=== PATIENT | male | born 1930 | race Caucasian/White ===

== ENCOUNTER 2017-05-13 16:02 | Inpatient (IN) | payer BC, OTHER ==
[~2017-05-13] VITALS: Ht 182.9 cm; Wt 85.4 kg
[~2017-05-13 16:02] MED LIST: CLB200 PO; DUTA0.5C PO; LEVO100T35 PO; OXYB5TAB74 PO; POLYSOL4 OPB; TAMS0.4C59 PO
--- NOTE | 2017-05-13 16:47 | EMERGENCY ROOM VISIT NOTE ---
History Report prepared by Heladio: Fela Valverde Under the Supervision of: Dr. Herbert Mcpherson M.D. First contact with patient: 16:41 Chief Complaint: ALTERED MENTAL STATUS Stated Complaint: POSSIBLE SEPTIC History of Present Illness The patient is a 86 year old male who presents to the Emergency Room with complaints of constant altered mental status. Per the nursing staff, the patient is from [facility] and was sent ALS to the ED. He was reported to be hypoxic as well as hypotensive in the halfway however he was normotensive on route.. He has dementia. This HPI is limited due to the patient' s dementia. No known fall or trauma. Source of History: nursing staff History Limited By: dementia Position: other (global) Quality: other (altered mental status) Timing: constant Review of Systems See HPI for pertinent positives & negatives. Unable to obtain review of systems from the patient due to dementia Past Medical & Surgical Medical Problems: (1) ambulatory dysfunction (2) Anxiety disorder (3) Hyperplasia of prostate (4) Hypotension (5) Hypothyroidism (6) Hypoxia (7) Vascular dementia Family History Patient reports no known family medical history. Social History Smoking Status: Never Smoker Alcohol Use: none Marital Status: single, Housing Status: assisted living Occupation Status: retired Current/Historical Medications Scheduled Acetaminophen (Tylenol), 2 TAB PO BID Buspirone Hcl (Buspirone Hcl), 1.5 TAB PO BID Clotrimazole (Topical) (Lotrimin Af), 1 APPLN TOP BID Escitalopram (Lexapro), 20 MG PO QAM Eucerin (Eucerin), 1 APPLN TOP BID Finasteride (Proscar), 5 MG PO QAM Levothyroxine Sodium (Levothyroxine Sodium), 1 TAB PO QAM Meloxicam (Mobic), 7.5 MG PO QAM Polyethylene Glycol-Propylene (Systane), 1 DROPS OPB BID Senna (Senokot), 2 TAB PO BID Tamsulosin Hcl (Flomax), 0.4 MG PO HS Allergies Coded Allergies: No Known Allergies (Verified , 05/13/17) Physical Exam Vital Signs Date Time Temp Pulse Resp B/P (MAP) Pulse Ox O2 Delivery O2 Flow Rate FiO2 05/13/17 19:53 36.8 81 19 119/63 100 05/13/17 19:46 119/63 05/13/17 19:36 81 19 100 05/13/17 19:31 116/67 05/13/17 19:16 110/73 05/13/17 19:06 87 22 100 05/13/17 19:01 127/77 05/13/17 18:46 111/78 05/13/17 18:36 84 21 100 05/13/17 18:31 84 120/67 100 Room Air 05/13/17 18:16 111/72 05/13/17 18:07 83 21 100 Room Air 05/13/17 18:02 84 19 100 Room Air 05/13/17 18:01 125/55 05/13/17 17:46 108/74 05/13/17 17:32 89 20 100 Room Air 05/13/17 17:31 81/51 05/13/17 17:16 119/59 05/13/17 17:03 95/65 05/13/17 17:02 90 20 100 05/13/17 17:01 89/61 05/13/17 16:57 88/63 05/13/17 16:47 101/32 05/13/17 16:43 36.8 95 24 106/48 100 Room Air 05/13/17 16:39 98/57 05/13/17 16:14 102/67 05/13/17 16:13 97 05/13/17 16:13 179/161 Physical Exam General: Chronically ill appearing older male, hard of hearing but easily arousable. Follows some commands, baseline dementia. Only oriented to person. HEENT: Normal cephalic atraumatic. Pupils are equal round and reactive to light. Extraocular movements are intact. Oropharynx is pink with moist mucous membranes. No swelling of the mouth lips or tongue. Neck: Supple with a midline trachea. No meningeal signs or stiffness, no JVD or bruits. No Stridor. Chest: Clear to auscultation bilaterally. No wheezes or rhonchi. No increased work of breathing. Heart: regular rate and rhythm. Abdomen: Soft nontender, nondistended without rebound guarding or rigidity. Extremities: No cyanosis clubbing or edema. No calf tenderness or assymetry Spine/Back. Non tender to palpation. No CVA tenderness Skin: Good turgor without rashes. Neurologic exam: Cranial nerves two through 12 are intact. Motor and sensation are intact and symmetrical throughout. Medical Decision & Procedures ER Provider Diagnostic Interpretation: X-ray results as stated below per interpretation by me and the radiologist: CHEST ONE VIEW PORTABLE CLINICAL HISTORY: Atypical chest pain COMPARISON STUDY: 08/01/2013 FINDINGS: The heart is the upper limits of normal in size. There is no evidence of failure. Surgical clips project in the left paramediastinal region. There are by basilar opacities. Atelectasis is favored over pneumonia. IMPRESSION: Bibasilar opacities, likely atelectatic although an inflammatory/infectious process could appear similar Electronically signed by: Boaz Garland M.D. 05/13/2017 5:53 PM Dictated Date/Time: 05/13/2017 5:51 PM Laboratory Results 05/13/17 17:10 Red Blood Count 2.78, Mean Corpuscular Volume 96.4, Mean Corpuscular Hemoglobin 29.9, Mean Corpuscular Hemoglobin Concent 31.0, Mean Platelet Volume 10.4, Neutrophils (%) (Auto) 87.2, Lymphocytes (%) (Auto) 5.9, Monocytes (%) (Auto) 6.1, Eosinophils (%) (Auto) 0.0, Basophils (%) (Auto) 0.1, Neutrophils # (Auto) 13.76, Lymphocytes # (Auto) 0.93, Monocytes # (Auto) 0.97, Eosinophils # (Auto) 0.00, Basophils # (Auto) 0.01 05/13/17 17:10 05/13/17 19:01 Test 05/13/17 17:10 05/13/17 17:14 05/13/17 17:16 05/13/17 19:01 White Blood Count 15.78 K/uL (4.8-10.8) Red Blood Count 2.78 M/uL (4.7-6.1) Hemoglobin 8.3 g/dL (14.0-18.0) Hematocrit 26.8 % (42-52) Mean Corpuscular Volume 96.4 fL (80-100) Mean Corpuscular Hemoglobin 29.9 pg (25-34) Mean Corpuscular Hemoglobin Concent 31.0 g/dl (32-36) Platelet Count 215 K/uL (130-400) Mean Platelet Volume 10.4 fL (7.4-10.4) Neutrophils (%) (Auto) 87.2 % Lymphocytes (%) (Auto) 5.9 % Monocytes (%) (Auto) 6.1 % Eosinophils (%) (Auto) 0.0 % Basophils (%) (Auto) 0.1 % Neutrophils # (Auto) 13.76 K/uL (1.4-6.5) Lymphocytes # (Auto) 0.93 K/uL (1.2-3.4) Monocytes # (Auto) 0.97 K/uL (0.11-0.59) Eosinophils # (Auto) 0.00 K/uL (0-0.5) Basophils # (Auto) 0.01 K/uL (0-0.2) RDW Standard Deviation 54.3 fL (36.4-46.3) RDW Coefficient of Variation 15.4 % (11.5-14.5) Immature Granulocyte % (Auto) 0.7 % Immature Granulocyte # (Auto) 0.11 K/uL (0.00-0.02) Anisocytosis PRESENT Anion Gap 13.0 mmol/L (3-11) Est Creatinine Clear Calc Drug Dose 33.0 ml/min Estimated GFR () 40.8 Estimated GFR (Non- 35.2 BUN/Creatinine Ratio 14.7 (10-20) Calcium Level 6.2 mg/dl (8.5-10.1) Total Bilirubin 0.4 mg/dl (0.2-1) Direct Bilirubin mg/dl (0-0.2) Alanine Aminotransferase (ALT/SGPT) 16 U/L (12-78) Alkaline Phosphatase 41 U/L (45-117) Total Protein 5.0 gm/dl (6.4-8.2) Albumin 2.1 gm/dl (3.4-5.0) Lipase 69 U/L (73-393) Thyroid Stimulating Hormone (TSH) 3.820 uIu/ml (0.300-4.500) Chemistry Specimen Hemolysis Bedside Lactic Acid Venous 7.37 mmol/L (0.90-1.70) Bedside Troponin I 0.100 ng/ml (0-0.045) TZ-Qwt-[id number]-Type Natriuretic Peptide 745 pg/ml (0-1800) Aspartate Amino Transf (AST/SGOT) 47 U/L (15-37) Test 05/13/17 19:21 05/13/17 19:40 Lactic Acid Level 4.9 mmol/L (0.4-2.0) Laboratory studies as stated above per my review. Medications Administered Medications (Trade) Dose Ordered Sig/Heavenly Route Start Time Stop Time Status Last Admin Dose Admin Sodium Chloride 1,000 ml @ 999 mls/hr Q1H1M STAT IV 05/13/17 16:49 05/13/17 17:49 DC 05/13/17 17:24 999 MLS/HR Sodium Chloride 1,000 ml @ 150 mls/hr Q6H40M ONCE IV 05/13/17 16:49 05/13/17 23:28 05/13/17 17:25 150 MLS/HR Cefepime HCl 2000 mg/Dextrose 112.5 ml @ 225 mls/hr NOW ONCE IV 05/13/17 17:45 05/13/17 18:14 DC 05/13/17 18:11 225 MLS/HR Sodium Chloride 1,000 ml @ 999 mls/hr Q1H1M STAT IV 05/13/17 17:56 05/13/17 18:56 DC 05/13/17 18:04 999 MLS/HR ECG Indication: altered mental status Rate (beats per minute): 97 Findings: no acute ischemic change, other (poor baseline) Comparison ECG Date: compared to April 19, 2002 the rate has increased otherwise no acute change ED Course 164: Past medical records reviewed. The patient was evaluated in room B12, and a complete history and physical examination were performed. 1649: Sodium Chloride 1,000 ml @ 150 mls/hr IV, Sodium Chloride 1,000 ml @ 999 mls/hr IV. 1745: Cefepime HCl 2,000 mg/ Dextrose 112.5 ml @ 225 mls/hr IV. 1755: The patient is in no acute distress and his pressure is normal. 1756: Sodium Chloride 1,000 ml @ 999 mls/hr IV. 180: I spoke with Dr. Kedar Levi about the patient. He will come evaluate the patient for further treatment and management. 1808: Upon reevaluation, the patient is hemodynamically stable. The patient will be evaluated for further management. Medical Decision Differentials include, but are not limited to; sepsis, UTI, dehydration, electrolyte or metabolic abnormalities. Medication Reconciliation: I attest that I have personally reviewed the patient' s current medication list. Blood pressure Screening: Patient was found to have normal blood pressure on screening and does not require follow-up. This patient comes in as described above .he has severe dementia apparently and was hypotensive and hypoxemic however now appears to do much better. He is difficult to evaluate secondary dementia and is afebrile here. IV access established hydrated with IV normal saline. Chest x-ray shows some questionable infiltrates was atelectasis in the base. Blood cultures were obtained his lactic acid initially was significant elevated at 7 when it was rechecked he was further lower at 4. He was given cefepime IV. He has been normotensive here with exception of one isolated episode of hypotension. I discussed the case with our ED pharmacist and we have selected the cefepime this covers lungs and urine which are the most likely source for possible infection. BUN and creatinine also mildly elevated he does have some anemia as well. I do think he needs to be admitted for hydration and further treatment and evaluation. I have consulted the [facility] hospitalist to see the patient in the ER. Consults Time Called: 1756 Consulting Physician: Dr. Kedar Levi Returned Call: [address] Kedar Levi about the patient. He will come evaluate the patient for further treatment and management. Impression Primary Impression: Sepsis Additional Impression: Dehydration Critical Care Due to the sepsis diagnoses of this patient and need for IV antibiotics IV fluids and frequent reassessment, I have personally spent greater than 30 minutes of critical care time in the direct management of this patient. This includes bedside care, interpretation of diagnostic studies, and testing, discussion with consultants, patient, and family members, and other required patient management activities. This 30 minutes is in excess of all separately billable procedures. Scribe Attestation The scribe's documentation has been prepared under my direction and personally reviewed by me in its entirety. I confirm that the note above accurately reflects all work, treatment, procedures, and medical decision making performed by me. Departure Information Dispostion Being Evaluated By Hospitalist Problem Qualifiers
[2017-05-13] MEDS ORDERED: SODIUM CHLORIDE 0.9% 1000ML 1,000 ML IV ONE (16:49)
[2017-05-13] MEDS ORDERED: SODIUM CHLORIDE 0.9% 1000ML 1,000 ML IV STA ×2 (16:49→17:56)
[2017-05-13] MEDS ORDERED: ACET-1311 PO (17:27)
[2017-05-13] MEDS ORDERED: MELO7.5T5 PO (17:27)
[2017-05-13] MEDS ORDERED: BUSP5TAB59 PO (17:27)
[2017-05-13] MEDS ORDERED: SENN-61 PO (17:27)
[2017-05-13] MEDS ORDERED: CLOT1CRE4 TOP (17:27)
[2017-05-13] MEDS ORDERED: FINA5TAB4 PO (17:27)
[2017-05-13] MEDS ORDERED: SKINCRE34 TOP (17:27)
[2017-05-13] MEDS ORDERED: POLYSOL4 OPB (17:27)
[2017-05-13] MEDS ORDERED: LEVO100T7 PO (17:27)
[2017-05-13] MEDS ORDERED: ESCI10TA17 PO (17:27)
[2017-05-13] MEDS ORDERED: TAMS0.4C38 PO (17:27)
[2017-05-13 17:35] LABS: BASO % 0.1 %; BASO ABS # 0.01 K/uL (0-0.2); HEMATOCRIT 26.8 % (42-52); IG% 0.7 %; LYMPH % 5.9 %; LYMPH ABS # 0.93 K/uL (1.2-3.4); MEAN CELL VOLUME 96.4 fL (80-100); MEAN CORPUSCULAR HEMOGLOBIN 29.9 pg (25-34); MEAN PLATELET VOLUME 10.4 fL (7.4-10.4); MONO % 6.1 %; NEUT % 87.2 %; PLATELET COUNT 215 K/uL (130-400); RED BLOOD COUNT 2.78 M/uL (4.7-6.1); WHITE BLOOD COUNT 15.78 K/uL (4.8-10.8)
[2017-05-13 17:36] LABS: POINT OF CARE TROPONIN I 0.1 ng/ml (0-0.045)
[2017-05-13] MEDS ORDERED: CEFEPIME IV 2000 MG in DEXTROSE 5% 100ML IV ONE (17:45)
--- NOTE | 2017-05-13 17:54 | DIAGNOSTIC IMAGING REPORT ---
CHEST ONE VIEW PORTABLE CLINICAL HISTORY: Atypical chest pain COMPARISON STUDY: 08/01/2013 FINDINGS: The heart is the upper limits of normal in size. There is no evidence of failure. Surgical clips project in the left paramediastinal region. There are by basilar opacities. Atelectasis is favored over pneumonia. IMPRESSION: Bibasilar opacities, likely atelectatic although an inflammatory/infectious process could appear similar Electronically signed by: Boaz Garland M.D. 05/13/2017 5:53 PM Dictated Date/Time: 05/13/2017 5:51 PM
[2017-05-13 18:03] LABS: ANISOCYTOSIS PRESENT; COMPLETE YES
[2017-05-13 18:16] LABS: BLOOD UREA NITROGEN 25 mg/dl (7-18); BUN/CREATININE RATIO 14.7 (10-20); CALCIUM 6.2 mg/dl (8.5-10.1); CARBON DIOXIDE 14 mmol/L (21-32); CHLORIDE 120 mmol/L (98-107); GLUCOSE 107 mg/dl (70-99); SODIUM 147 mmol/L (136-145)
[2017-05-13 18:43] LABS: ALKALINE PHOSPHATASE 41 U/L (45-117); ALT/SGPT 16 U/L (12-78)
[2017-05-13 19:24] LABS: POTASSIUM 4.7 mmol/L (3.5-5.1)
--- NOTE | 2017-05-13 19:53 | History and Physical ---
History & Physical Date & Time of Service: May 13, 2017 at 19:15 Chief Complaint: Possible Septic Primary Care Physician: Anne Penn D.O. History of Present Illness Source: patient, hospital records, longterm 86 yo Male with PMH of Dementia, BPH, Hypothyroidism, HTN was sent from [facility] for hypotension/hypoxia. History limited due to patient dementia. Hx obtained from the ER chart/ER physician and Nursing staff/chart. As per Nursing staff pt was lethargy. His oxygen saturation was checked and was found to be in the 80's. he was placed on 2L NC and his saturation was 99. Nursing staff was unable to get his BP. As per staff, they were only getting 1 number (manually or BP machine and did not know if it was systolic and diastolic). As per longterm staff pt did not have any diarrhea, fever, chills, vomiting, diarrhea, cough or urinary symptoms. They called EMS and sent him to the Hospital for further eval. Received IVF and cefepime in the ER. Pt lying in bed B12 in the ER with no distress, BP 120/67 and saturated at 100%. denies any chest pain. Past Medical/Surgical History Medical Problems: (1) Anxiety disorder Status: Chronic (2) Hyperplasia of prostate Status: Chronic (3) Hypothyroidism Status: Chronic (4) Vascular dementia Status: Chronic Family History Patient reports no known family medical history. Social History Smoking Status: Unknown if Ever Smoked Marital Status: single, Housing status: lives alone Occupational Status: retired Immunizations History of Influenza Vaccine: N/A History of Tetanus Vaccine?: Yes History of Pneumococcal: Yes History of Hepatitis B Vaccine: No Multi-Drug Resistant Organisms History of MDRO: No Allergies Coded Allergies: No Known Allergies (Verified , 05/13/17) Home Medications Scheduled Acetaminophen (Tylenol), 2 TAB PO BID Buspirone Hcl (Buspirone Hcl), 1.5 TAB PO BID Clotrimazole (Topical) (Lotrimin Af), 1 APPLN TOP BID Escitalopram (Lexapro), 20 MG PO QAM Eucerin (Eucerin), 1 APPLN TOP BID Finasteride (Proscar), 5 MG PO QAM Levothyroxine Sodium (Levothyroxine Sodium), 1 TAB PO QAM Meloxicam (Mobic), 7.5 MG PO QAM Polyethylene Glycol-Propylene (Systane), 1 DROPS OPB BID Senna (Senokot), 2 TAB PO BID Tamsulosin Hcl (Flomax), 0.4 MG PO HS Review of Systems Limited due to dementia Constitutional: No fever, No chills ENT: No nasal symptoms, No sore throat Respiratory: No cough, No sputum, No wheezing Cardiovascular: No chest pain Abdomen: No nausea, No vomiting, No diarrhea Musculoskeletal: No swelling Genitourinary - Male: No hematuria, No dysuria Neurologic: + problem reported (dementia) Psychiatric: No substance abuse Endocrine: No excessive urination Hematologic / Lymphatic: No night sweats Integumentary: No rash Physical Exam Vital Signs Date Time Temp Pulse Resp B/P (MAP) Pulse Ox O2 Delivery O2 Flow Rate FiO2 05/13/17 18:31 84 120/67 100 Room Air 05/13/17 18:16 111/72 05/13/17 18:07 83 21 100 Room Air 05/13/17 18:02 84 19 100 Room Air 05/13/17 18:01 125/55 05/13/17 17:46 108/74 05/13/17 17:32 89 20 100 Room Air 05/13/17 17:31 81/51 05/13/17 17:16 119/59 05/13/17 17:03 95/65 05/13/17 17:02 90 20 100 05/13/17 17:01 89/61 05/13/17 16:57 88/63 05/13/17 16:47 101/32 05/13/17 16:43 36.8 95 24 106/48 100 Room Air 05/13/17 16:39 98/57 05/13/17 16:14 102/67 05/13/17 16:13 97 05/13/17 16:13 179/161 General Appearance: WD/WN, no apparent distress Head: normocephalic, atraumatic Eyes: EOMI ENT: + pertinent finding (decrease hearing function) Neck: supple, no JVD Respiratory/Chest: lungs clear, no respiratory distress, no accessory muscle use Cardiovascular: regular rate, rhythm, no edema Abdomen/GI: normal bowel sounds Back: no CVA tenderness Extremities/Musculoskelatal: no pedal edema Neurologic/Psych: alert, + pertinent finding (dementia, move all extremities) Skin: warm/dry, no rash Diagnostics Laboratory Results Results Past 24 Hours Test 05/13/17 17:10 05/13/17 17:14 05/13/17 17:16 05/13/17 17:19 Range/Units White Blood Count 15.78 4.8-10.8 K/uL Red Blood Count 2.78 4.7-6.1 M/uL Hemoglobin 8.3 14.0-18.0 g/dL Hematocrit 26.8 42-52 % Mean Corpuscular Volume 96.4 80-100 fL Mean Corpuscular Hemoglobin 29.9 25-34 pg Mean Corpuscular Hemoglobin Concent 31.0 32-36 g/dl Platelet Count 215 130-400 K/uL Mean Platelet Volume 10.4 7.4-10.4 fL Neutrophils (%) (Auto) 87.2 % Lymphocytes (%) (Auto) 5.9 % Monocytes (%) (Auto) 6.1 % Eosinophils (%) (Auto) 0.0 % Basophils (%) (Auto) 0.1 % Neutrophils # (Auto) 13.76 1.4-6.5 K/uL Lymphocytes # (Auto) 0.93 1.2-3.4 K/uL Monocytes # (Auto) 0.97 0.11-0.59 K/uL Eosinophils # (Auto) 0.00 0-0.5 K/uL Basophils # (Auto) 0.01 0-0.2 K/uL RDW Standard Deviation 54.3 36.4-46.3 fL RDW Coefficient of Variation 15.4 11.5-14.5 % Immature Granulocyte % (Auto) 0.7 % Immature Granulocyte # (Auto) 0.11 0.00-0.02 K/uL Anisocytosis PRESENT Sodium Level 147 136-145 mmol/L Potassium Level 3.5-5.1 mmol/L Chloride Level 120 98-107 mmol/L Carbon Dioxide Level 14 21-32 mmol/L Anion Gap 13.0 3-11 mmol/L Blood Urea Nitrogen 25 7-18 mg/dl Creatinine 1.70 0.60-1.40 mg/dl Est Creatinine Clear Calc Drug Dose 33.0 ml/min Estimated GFR () 40.8 Estimated GFR (Non- 35.2 BUN/Creatinine Ratio 14.7 10-20 Random Glucose 107 70-99 mg/dl Calcium Level 6.2 8.5-10.1 mg/dl Total Bilirubin 0.4 0.2-1 mg/dl Direct Bilirubin 0-0.2 mg/dl Aspartate Amino Transf (AST/SGOT) 15-37 U/L Alanine Aminotransferase (ALT/SGPT) 16 12-78 U/L Alkaline Phosphatase 41 45-117 U/L Total Protein 5.0 6.4-8.2 gm/dl Albumin 2.1 3.4-5.0 gm/dl Lipase 69 73-393 U/L Thyroid Stimulating Hormone (TSH) 3.820 0.300-4.500 uIu/ml Chemistry Specimen Hemolysis Bedside Lactic Acid Venous 7.37 0.90-1.70 mmol/L Bedside Troponin I 0.100 0-0.045 ng/ml [id number] Natriuretic Peptide 745 0-1800 pg/ml Test 05/13/17 19:01 Range/Units Microbiology Results 05/13/17 Blood Culture, Received Pending 05/13/17 Blood Culture, Received Pending Diagnostic Radiology CHEST ONE VIEW PORTABLE CLINICAL HISTORY: Atypical chest pain COMPARISON STUDY: 08/01/2013 FINDINGS: The heart is the upper limits of normal in size. There is no evidence of failure. Surgical clips project in the left paramediastinal region. There are by basilar opacities. Atelectasis is favored over pneumonia. IMPRESSION: Bibasilar opacities, likely atelectatic although an inflammatory/infectious process could appear similar Electronically signed by: Boaz Garland M.D. 05/13/2017 5:53 PM Dictated Date/Time: 05/13/2017 5:51 PM Impression Assessment and Plan Hypotension Was sent from [facility] for hypoxia and hypotension Need to r/o sepsis vs dehydration BP responds with IVF Elevated POC lactic Saturated well on RA Blood cx pending Will check urine cx and procalcitonin, lactic acid Received Cefepime in the ER, will continue abx for now Will continue gentle IVF Hypoxia CXR showed Bibasilar opacities Continue cefepime saturated at 100% on RA continue monitor Elevated troponin Possible related to elevated creatine EKG showed no ischemic changes Asymptomatic Will monitor CM Continue monitor in telemetry Acute Kidney injury Possible related to dehydration creatine on admission was 1.7 creatine baseline 1.1 continue IVF avoid nephrotoxic agents monitor BMP Dementia stable Hypothyroidism Check TSH Continue levothyroxine DVT px on heparin subq Code Status DNR as per longterm paper and advanced directive Level of Care Telemetry Resuscitation Status DO NOT RESUSCITATE VTE Prophylaxis VTE Risk Assessment Done? Y/N: Yes Risk Level: Moderate Given or contraindicated: Unfractionated heparin SQ
[2017-05-13] MEDS ORDERED: SODIUM CHLORIDE 0.45% 1000ML 1,000 ML IV SCH (20:27)
[2017-05-13 20:41] VITALS: BP 135/66; PULSE 85; TEMP 36.3; O2SAT 98; Ht 182.9 cm; Wt 85.4 kg
[2017-05-13 21:05] LABS: PROTHROMBIN TIME (PATIENT) 10.9 SECONDS (9.0-12.0)
[2017-05-13] MEDS: ARTIFICIAL TEARS OP SOLN OPB SCH ×2 (22:12)
[2017-05-13] MEDS: TAMSULOSIN HCL 0.4 MG CAP PO SCH (22:13)
[2017-05-13] MEDS: HEPARIN SOD 5000 UNIT/0.5 ML CARP SQ SCH (22:14)
[2017-05-14] VITALS (8 sets, daily range): BP systolic 92–144; BP diastolic 46–80; PULSE 68–89; TEMP 36.6–37; O2SAT 92–100
[2017-05-14 04:49] LABS: URINE APPEARANCE TURBID (CLEAR); URINE BILIRUBIN NEG (NEG); URINE COLOR DK YELLOW; URINE EPITHELIAL CELL AUTO >30 /lpf (0-5); URINE NITRITE POS (NEG); UROBILINOGEN NEG (NEG); ZZUR CULT IF INDIC CLEAN CATCH YES
[2017-05-14 04:57] LABS: MANUAL MICROSCOPIC REQUIRED? NO; REVIEW REQ? YES
[2017-05-14] MEDS: CEFEPIME IV 1,000 MG in DEXTROSE 5% 100ML 100 ML IV SCH ×2 (05:34→17:31)
[2017-05-14] MEDS: LEVOTHYROXINE 100 MCG TAB PO SCH (05:34)
[2017-05-14] MEDS: HEPARIN SOD 5000 UNIT/0.5 ML CARP SQ SCH ×3 (05:36→20:45)
[2017-05-14 05:52] LABS: HEMATOCRIT 26.3 % (42-52); MEAN CELL VOLUME 96.7 fL (80-100); MEAN CORPUSCULAR HEMOGLOBIN 31.6 pg (25-34); MEAN CORPUSCULAR HGB CONC 32.7 g/dl (32-36); MEAN PLATELET VOLUME 9.1 fL (7.4-10.4); PLATELET COUNT 237 K/uL (130-400); RED BLOOD COUNT 2.72 M/uL (4.7-6.1); WHITE BLOOD COUNT 15.65 K/uL (4.8-10.8)
[2017-05-14 06:30] LABS: BUN/CREATININE RATIO 17.2 (10-20); CALCIUM 8.1 mg/dl (8.5-10.1); CARBON DIOXIDE 22 mmol/L (21-32); CHLORIDE 113 mmol/L (98-107); GLUCOSE 108 mg/dl (70-99); MAGNESIUM 2.1 mg/dl (1.8-2.4); POTASSIUM 4.2 mmol/L (3.5-5.1); SODIUM 142 mmol/L (136-145)
[2017-05-14] MEDS: FINASTERIDE 5 MG TAB PO SCH (08:11)
[2017-05-14] MEDS: ARTIFICIAL TEARS OP SOLN OPB SCH ×4 (08:12→20:33)
[2017-05-14] MEDS: ESCITALOPRAM OXALATE 20 MG TAB PO SCH (08:12)
[2017-05-14] MEDS: SODIUM CHLORIDE 0.9% 1000ML 1,000 ML IV SCH ×2 (08:13→17:29)
--- NOTE | 2017-05-14 09:27 | Nephrology Consultation ---
Nephrology Consultation Date of Consultation: May 14, 2017. Attending Physician: Miguel Angel Reason for Consultation: barbara History of Present Illness Patient is a 86 year old male with barbara who presented on may 13 with low blood pressures and hypoxia. pt with underlying dementia at baseline. pt has been reported to be more lethargic recently and o2 sat was 80% and improved with nasal cannula. pt was not complaining of any symptoms and no documented fevers at assisted. started on iv fluids and iv antibiotics. found to have elevated troponin this morning and obtained ekg. pt though asymptomatic and denies any chest pain. eating breakfast. creatinine at baseline is 1.1 and presented at 1.7 and now up to 2.4. Past Medical/Surgical History Medical Problems: (1) Sepsis Status: Acute bph anxiety dementia hypothyroidism Family History Patient reports no known family medical history. no known family history of renal disease Social History Smoking Status: Unknown if Ever Smoked Alcohol Use: none Drug Use: none Marital Status: single, Housing Status: assisted living Occupation Status: retired Allergies Coded Allergies: No Known Allergies (Verified , 05/13/17) Medications Current Inpatient Medications Medications (Trade) Dose Ordered Sig/Heavenly Route Start Time Stop Time Status Last Admin Dose Admin Heparin Sodium (Porcine) (Heparin Sq 5000 Unit/0.5ml) 5,000 unit Q8 SQ 05/13/17 22:00 06/12/17 21:59 05/14/17 05:36 5,000 UNIT Cefepime HCl 1000 mg/Dextrose 111.3 ml @ 200 mls/hr Q12H IV 05/14/17 06:00 05/16/17 05:59 05/14/17 05:34 200 MLS/HR Buspirone HCl (Buspar Tab) 7.5 mg BID PO 05/13/17 21:00 06/12/17 20:59 05/14/17 08:12 7.5 MG Escitalopram Oxalate (Lexapro Tab) 20 mg QAM PO 05/14/17 09:00 06/13/17 08:59 05/14/17 08:12 20 MG Finasteride (Proscar Tab) 5 mg QAM PO 05/14/17 09:00 06/13/17 08:59 05/14/17 08:11 5 MG Levothyroxine Sodium (Synthroid Tab) 100 mcg DAILYBB PO 05/14/17 06:30 06/13/17 06:59 05/14/17 05:34 100 MCG Tamsulosin HCl (Flomax Cap) 0.4 mg HS PO 05/13/17 21:00 06/12/17 20:59 Artificial Tears (Artificial Tears) 1 drops BID OPB 05/13/17 21:00 06/12/17 20:59 05/14/17 08:12 1 DROPS Sodium Chloride 1,000 ml @ 100 mls/hr Q10H IV 05/14/17 07:30 06/13/17 07:29 05/14/17 08:13 100 MLS/HR Home Meds and Scripts Medications Dose Route/Sig Max Daily Dose Days Date Category Dose Instructions Systane (Polyethylene Glycol-Propylene) 1 Laura Laura 1 Drops OPB BID 05/13/17 Reported [id number] Levothyroxine Sodium 100 Mcg Tab 1 Tab PO QAM 05/13/17 Reported 0800 Senokot (Senna) 8.6 Mg Tab 2 Tab PO BID 05/13/17 Reported [id number] Proscar (Finasteride) 5 Mg Tab 5 Mg PO QAM 05/13/17 Reported 0800 Mobic (Meloxicam) 7.5 Mg Tab 7.5 Mg PO QAM 05/13/17 Reported 0800 Lexapro (Escitalopram Oxalate) 10 Mg Tab 20 Mg PO QAM 05/13/17 Reported 0800 Flomax (Tamsulosin Hcl) 0.4 Mg Cap 0.4 Mg PO HS 05/13/17 Reported 2000 Eucerin (Multi-Ingredient Ointment) Cre 1 Appln TOP BID 05/13/17 Reported [id number] Lotrimin Af (Clotrimazole (Topical)) 1 % Cre 1 Appln TOP BID 05/13/17 Reported [id number] Buspirone Hcl 5 Mg Tab 1.5 Tab PO BID 05/13/17 Reported [id number] Tylenol (Acetaminophen) 325 Mg Tab 2 Tab PO BID 05/13/17 Reported [phone] Review of Systems unable to obtain secondary to underlying dementia-pt though with no specific complaints Physical Exam Date Time Temp Pulse Resp B/P (MAP) Pulse Ox O2 Delivery O2 Flow Rate FiO2 05/14/17 07:43 36.8 74 19 111/46 (67) 92 Room Air 05/14/17 04:00 36.8 89 18 144/65 (91) 96 Room Air 05/14/17 03:58 Room Air 05/14/17 00:04 Room Air 05/14/17 00:00 36.9 82 18 92/58 (69) 100 Room Air 05/13/17 20:41 36.3 85 18 135/66 98 Room Air 05/13/17 19:53 36.8 81 19 119/63 100 05/13/17 19:46 119/63 05/13/17 19:36 81 19 100 05/13/17 19:31 116/67 05/13/17 19:16 110/73 05/13/17 19:06 87 22 100 05/13/17 19:01 127/77 05/13/17 18:46 111/78 05/13/17 18:36 84 21 100 05/13/17 18:31 84 120/67 100 Room Air 05/13/17 18:16 111/72 05/13/17 18:07 83 21 100 Room Air 05/13/17 18:02 84 19 100 Room Air 05/13/17 18:01 125/55 05/13/17 17:46 108/74 05/13/17 17:32 89 20 100 Room Air 05/13/17 17:31 81/51 05/13/17 17:16 119/59 05/13/17 17:03 95/65 05/13/17 17:02 90 20 100 05/13/17 17:01 89/61 05/13/17 16:57 88/63 05/13/17 16:47 101/32 05/13/17 16:43 36.8 95 24 106/48 100 Room Air 05/13/17 16:39 98/57 05/13/17 16:14 102/67 05/13/17 16:13 97 05/13/17 16:13 179/161 General Appearance: no apparent distress Eyes: PERRL ENT: normal ENT inspection Neck: supple Respiratory/Chest: + decreased breath sounds Cardiovascular: regular rate, rhythm, no edema Abdomen: normal bowel sounds, non tender, soft Extremities: non-tender, no pedal edema Neurologic/Psych: + pertinent finding (dementia at baseline) Skin: normal color, no jaundice, warm/dry, no rash Diagnostics Last 24 Hours Test 05/13/17 17:10 05/13/17 17:14 05/13/17 17:16 05/13/17 19:01 White Blood Count 15.78 K/uL Red Blood Count 2.78 M/uL Hemoglobin 8.3 g/dL Hematocrit 26.8 % Mean Corpuscular Volume 96.4 fL Mean Corpuscular Hemoglobin 29.9 pg Mean Corpuscular Hemoglobin Concent 31.0 g/dl Platelet Count 215 K/uL Mean Platelet Volume 10.4 fL Neutrophils (%) (Auto) 87.2 % Lymphocytes (%) (Auto) 5.9 % Monocytes (%) (Auto) 6.1 % Eosinophils (%) (Auto) 0.0 % Basophils (%) (Auto) 0.1 % Neutrophils # (Auto) 13.76 K/uL Lymphocytes # (Auto) 0.93 K/uL Monocytes # (Auto) 0.97 K/uL Eosinophils # (Auto) 0.00 K/uL Basophils # (Auto) 0.01 K/uL RDW Standard Deviation 54.3 fL RDW Coefficient of Variation 15.4 % Immature Granulocyte % (Auto) 0.7 % Immature Granulocyte # (Auto) 0.11 K/uL Anisocytosis PRESENT Sodium Level 147 mmol/L Potassium Level mmol/L 4.7 mmol/L Chloride Level 120 mmol/L Carbon Dioxide Level 14 mmol/L Anion Gap 13.0 mmol/L Blood Urea Nitrogen 25 mg/dl Creatinine 1.70 mg/dl Est Creatinine Clear Calc Drug Dose 33.0 ml/min Estimated GFR () 40.8 Estimated GFR (Non- 35.2 BUN/Creatinine Ratio 14.7 Random Glucose 107 mg/dl Calcium Level 6.2 mg/dl Total Bilirubin 0.4 mg/dl Direct Bilirubin mg/dl Aspartate Amino Transf (AST/SGOT) U/L 47 U/L Alanine Aminotransferase (ALT/SGPT) 16 U/L Alkaline Phosphatase 41 U/L Total Protein 5.0 gm/dl Albumin 2.1 gm/dl Lipase 69 U/L Thyroid Stimulating Hormone (TSH) 3.820 uIu/ml Chemistry Specimen Hemolysis Bedside Lactic Acid Venous 7.37 mmol/L Bedside Troponin I 0.100 ng/ml [id number] Natriuretic Peptide 745 pg/ml Test 05/13/17 19:21 05/13/17 19:40 05/13/17 20:44 05/13/17 23:00 Lactic Acid Level 4.9 mmol/L Procalcitonin 0.20 ng/ml Prothrombin Time 10.9 SECONDS Prothromb Time International Ratio 1.0 Activated Partial Thromboplast Time 25.9 SECONDS Partial Thromboplastin Ratio 1.0 Creatine Kinase MB Ratio Test 05/13/17 23:10 05/14/17 00:30 05/14/17 04:30 05/14/17 05:00 Creatine Kinase MB 21.8 ng/ml Lactic Acid Level 2.7 mmol/L Urine Color DK YELLOW Urine Appearance TURBID Urine pH 5.0 Urine Specific [place] 1.020 Urine Protein 2+ Urine Glucose (UA) NEG Urine Ketones TRACE Urine Occult Blood 3+ Urine Nitrite POS Urine Bilirubin NEG Urine Urobilinogen NEG Urine Leukocyte Esterase LARGE Urine WBC (Auto) >30 /hpf Urine RBC (Auto) >30 /hpf Urine Hyaline Casts (Auto) 5-10 /lpf Urine Epithelial Cells (Auto) >30 /lpf Urine Bacteria (Auto) 4+ Urine Crystals CALCIUM OXALATE Urine Yeast (Auto) Creatine Kinase MB Ratio Test 05/14/17 05:33 White Blood Count 15.65 K/uL Red Blood Count 2.72 M/uL Hemoglobin 8.6 g/dL Hematocrit 26.3 % Mean Corpuscular Volume 96.7 fL Mean Corpuscular Hemoglobin 31.6 pg Mean Corpuscular Hemoglobin Concent 32.7 g/dl RDW Standard Deviation 54.6 fL RDW Coefficient of Variation 15.4 % Platelet Count 237 K/uL Mean Platelet Volume 9.1 fL Sodium Level 142 mmol/L Potassium Level 4.2 mmol/L Chloride Level 113 mmol/L Carbon Dioxide Level 22 mmol/L Anion Gap 7.0 mmol/L Creatinine 2.40 mg/dl Est Creatinine Clear Calc Drug Dose 23.4 ml/min Estimated GFR () 26.9 Estimated GFR (Non- 23.2 BUN/Creatinine Ratio 17.2 Random Glucose 108 mg/dl Calcium Level 8.1 mg/dl Magnesium Level 2.1 mg/dl Creatine Kinase MB 22.7 ng/ml Troponin I 0.310 ng/ml Assessment & Plan barbara-atn in the setting of low blood pressures and presumed infection. on iv fluids and tolerating them well. to obtain a renal us to be thorough. no indication for dialysis at this time and would not recommend dialysis if the need arises. cultures pending. on broad sprectum antibiotics. appears to have uti but may be a contaminant. awaiting cultures. creatinine likely to worsen over the next couple of days before hopefully eventually starting to improve. will follow along.
[2017-05-14 09:53] LABS: BLOOD UREA NITROGEN 41 mg/dl (7-18)
--- NOTE | 2017-05-14 11:05 | DIAGNOSTIC IMAGING REPORT ---
EXAMINATION: RENAL ULTRASOUND CLINICAL HISTORY: Acute renal insufficiency COMPARISON STUDY: FINDINGS: The right kidney measures 10.9 cm.. The left kidney measures 10.6 cm.. There is no evidence of hydronephrosis. 2 right renal cysts are visualized measuring 32 mm and 20 mm respectively. There is a moderate amount of dependent debris within the bladder. Correlate with urinalysis. There is an 18 mm left-sided bladder diverticulum. IMPRESSION : 1. No evidence of hydronephrosis 2. Moderate bladder debris 3. Left-sided bladder diverticulum 4. Right renal cysts Electronically signed by: Boaz Garland M.D. 05/14/2017 11:03 AM Dictated Date/Time: 05/14/2017 11:01 AM
--- NOTE | 2017-05-14 12:46 | ECHOCARDIOGRAM REPORT ---
*NOTICE TO RECEIVING CONSTITUTION PARTY AGENCY This information is strictly Confidential and protected under [place] law. [place] law prohibits you from making any further disclosure of this information unless further disclosure is expressly permitted by the written consent of the person to whom it pertains or is authorized by law. A general authorization for the release of medical or other information is not sufficient for this purpose. Hospital accepts no responsibility if the information is made available to any other person, INCLUDING THE PATIENT. Interpretation Summary * Name: DARCY BORGES Study Date: 05/14/2017 11:03 AM * Patient Location: [facility]\S\N277\S\2 HR: 84 * : 1930 (M/d/yyyy) Gender: Male Height: 72 in * Age: 86 yrs Ethnicity: [place] Weight: 190 lb * Ordering Physician: Martina Michelle * Referring Physician: Richard Garcia at * Performed By: Arnaud Gilmore RCS * * Reason For Study: Elevated Troponin * BSA: 2.1 m2 * -- Conclusions -- * The LV appears small and underfilled. * Septal motion is consistent with conduction abnormality. * No regional wall motion abnormalities. * The right ventricle is normal in size and function. * The right ventricular systolic function is normal as assessed by tricuspid annular plane systolic excursion (TAPSE) (normal >1.5 cm). * Aortic valve sclerosis moderate, without significant aortic valvular stenosis. * There is mild concentric left ventricular hypertrophy. * Thickened mitral valve leaflets with calcification of the subchordal apparatus. * Dilated aortic root (4.3 cm) and ascending aorta (4.1 cm) * trace pericardial effusion. * Grade I diastolic dysfunction, (abnormal relaxation pattern). Procedure Details * Left Ventricle The LV appears small and underfilled. There is mild concentric left ventricular hypertrophy. Ejection Fraction = >70 %. Septal motion is consistent with conduction abnormality. No regional wall motion abnormalities. * Right Ventricle The right ventricle is normal in size and function. The right ventricular systolic function is normal as assessed by tricuspid annular plane systolic excursion (TAPSE) (normal >1.5 cm). * Atria The left atrium is mildly dilated. Right atrial size is normal. * Mitral Valve Thickened mitral valve leaflets with calcification of the subchordal apparatus. There is trace mitral regurgitation. * Tricuspid Valve The tricuspid valve anatomy is normal. There is trace tricuspid regurgitation. * Aortic Valve Aortic valve sclerosis moderate, without significant aortic valvular stenosis. No aortic regurgitation is present. * Pulmonic Valve The pulmonic valve is not well seen, but is grossly normal. Mild pulmonic valvular regurgitation. * Great Vessels Dilated aortic root (4.3 cm) and ascending aorta (4.1 cm) * Pericardium/Pleural trace pericardial effusion. * Left Ventricular Diastolic Function Grade I diastolic dysfunction, (abnormal relaxation pattern). Normal E to e' ratio. * * MMode 2D Measurements and Calculations * IVSd 1.3 cm * * LVIDd 4.4 cm * LVIDs 2.8 cm * LVPWd 1.4 cm * * IVS/LVPW 0.97 * FS 35.7 % * EDV(Teich) 87.2 ml * ESV(Teich) 30.1 ml * EF(Teich) 65.5 % * * EDV(cubed) 84.5 ml * ESV(cubed) 22.4 ml * EF(cubed) 73.5 % * * LV mass(C)d 223.5 grams * LV mass(C)dI 107.2 grams/m\S\2 * * SV(Teich) 57.1 ml * SI(Teich) 27.4 ml/m\S\2 * SV(cubed) 62.1 ml * SI(cubed) 29.8 ml/m\S\2 * * Ao root diam 4.3 cm * Ao root area 14.4 cm\S\2 * * asc Aorta Diam 4.1 cm * * LVOT diam 3.2 cm * LVOT area 8.2 cm\S\2 * * LVAd ap4 38.8 cm\S\2 * LVLd ap4 10.3 cm * EDV(MOD-sp4) 117.3 ml * EDV(sp4-el) 123.8 ml * LVAs ap4 14.7 cm\S\2 * LVLs ap4 7.1 cm * ESV(MOD-sp4) 29.4 ml * ESV(sp4-el) 25.8 ml * EF(MOD-sp4) 74.9 % * EF(sp4-el) 79.2 % * * LVAd ap2 35.7 cm\S\2 * LVLd ap2 9.3 cm * EDV(MOD-sp2) 110.5 ml * EDV(sp2-el) 116.3 ml * LVAs ap2 13.0 cm\S\2 * LVLs ap2 6.4 cm * ESV(MOD-sp2) 23.7 ml * ESV(sp2-el) 22.6 ml * EF(MOD-sp2) 78.6 % * EF(sp2-el) 80.5 % * * LVLd %diff -10.57 % * EDV(MOD-bp) 116.9 ml * LVLs %diff -11.76 % * ESV(MOD-bp) 27.0 ml * EF(MOD-bp) 76.9 % * * SV(MOD-sp4) 87.9 ml * SI(MOD-sp4) 42.2 ml/m\S\2 * * SV(MOD-sp2) 86.8 ml * SI(MOD-sp2) 41.6 ml/m\S\2 * * SV(MOD-bp) 90.0 ml * SI(MOD-bp) 43.2 ml/m\S\2 * * SV(sp4-el) 98.0 ml * SI(sp4-el) 47.0 ml/m\S\2 * * SV(sp2-el) 93.7 ml * SI(sp2-el) 44.9 ml/m\S\2 * * * * * * Doppler Measurements and Calculations * MV E max joseline 37.7 cm/sec * MV A max joseline 72.8 cm/sec * * MV E/A 0.52 * * MV dec time 0.16 sec * * *
--- NOTE | 2017-05-14 19:07 | Progress Note ---
Medicine Progress Note Date & Time of Visit: May 14, 2017 at 18:49. Subjective Pt was seen and examined Lying in bed with no distress when i entered his room pt asking me "who are you" after that He never answered to any of my question he is saturated well on RA Objective Last 8 Hrs Date Time Temp Pulse Resp B/P (MAP) Pulse Ox O2 Delivery O2 Flow Rate FiO2 05/14/17 16:00 Room Air 05/14/17 15:28 36.8 76 19 121/70 (87) 93 Room Air 05/14/17 12:00 93 Room Air Physical Exam: General- No acute distress Head- atraumatic Eyes- PERRL, EOMI ENT- oropharynx clear Neck- supple, no JVD Lungs- Poor air entry due to unable to follow commands Heart- regular rhythm Abdomen- normal bowel sounds, soft Extremities- no pretibial edema Neuro- awake and alert, PERRL, move all extremities Skin- warm & dry Laboratory Results: Last 24 Hours Test 05/13/17 19:01 05/13/17 19:21 05/13/17 19:40 05/13/17 20:44 Potassium Level 4.7 mmol/L Aspartate Amino Transf (AST/SGOT) 47 U/L Lactic Acid Level 4.9 mmol/L Procalcitonin 0.20 ng/ml Prothrombin Time 10.9 SECONDS Prothromb Time International Ratio 1.0 Activated Partial Thromboplast Time 25.9 SECONDS Partial Thromboplastin Ratio 1.0 Test 05/13/17 23:00 05/13/17 23:10 05/14/17 00:30 05/14/17 04:30 Creatine Kinase MB Ratio Creatine Kinase MB 21.8 ng/ml Lactic Acid Level 2.7 mmol/L Urine Color DK YELLOW Urine Appearance TURBID Urine pH 5.0 Urine Specific [place] 1.020 Urine Protein 2+ Urine Glucose (UA) NEG Urine Ketones TRACE Urine Occult Blood 3+ Urine Nitrite POS Urine Bilirubin NEG Urine Urobilinogen NEG Urine Leukocyte Esterase LARGE Urine WBC (Auto) >30 /hpf Urine RBC (Auto) >30 /hpf Urine Hyaline Casts (Auto) 5-10 /lpf Urine Epithelial Cells (Auto) >30 /lpf Urine Bacteria (Auto) 4+ Urine Crystals CALCIUM OXALATE Urine Yeast (Auto) Test 05/14/17 05:00 05/14/17 05:33 05/14/17 14:10 Creatine Kinase MB Ratio White Blood Count 15.65 K/uL Red Blood Count 2.72 M/uL Hemoglobin 8.6 g/dL Hematocrit 26.3 % Mean Corpuscular Volume 96.7 fL Mean Corpuscular Hemoglobin 31.6 pg Mean Corpuscular Hemoglobin Concent 32.7 g/dl RDW Standard Deviation 54.6 fL RDW Coefficient of Variation 15.4 % Platelet Count 237 K/uL Mean Platelet Volume 9.1 fL Sodium Level 142 mmol/L Potassium Level 4.2 mmol/L Chloride Level 113 mmol/L Carbon Dioxide Level 22 mmol/L Anion Gap 7.0 mmol/L Blood Urea Nitrogen 41 mg/dl Creatinine 2.40 mg/dl Est Creatinine Clear Calc Drug Dose 23.4 ml/min Estimated GFR () 26.9 Estimated GFR (Non- 23.2 BUN/Creatinine Ratio 17.2 Random Glucose 108 mg/dl Calcium Level 8.1 mg/dl Magnesium Level 2.1 mg/dl Creatine Kinase MB 22.7 ng/ml Troponin I 0.310 ng/ml 0.245 ng/ml Date/Time Source Procedure Growth Status 05/13/17 21:40 Nasal MRSA DNA Surveillance Screen - Final Specimen Negative for MRSA by DNA Probe Complete 05/14/17 04:30 Urine , Clean Catch Urine Culture Pending Received Assessment & Plan Sepsis Meet sepsis criteria on admission. Present with tachycardia, elevated WBC, elevated lactic acid on admission was hypotensive at [facility] BP responds with IVF Lactic acid trending down Saturated well on RA UA positive for UTI Blood cx pending and urine cx pending procalcitonin normal Continue Cefepime IV Continue IVF Vital stable Hypoxia CXR showed Bibasilar opacities Continue cefepime saturated well on RA continue monitor Elevated troponin Possible related to elevated creatine EKG showed no ischemic changes trop trending down Asymptomatic Continue monitor in telemetry Echo showed * The LV appears small and underfilled. * Septal motion is consistent with conduction abnormality. * No regional wall motion abnormalities. * The right ventricle is normal in size and function. * EF=> 70 Acute Kidney injury Possible related to dehydration creatine on admission was 1.7 creatine baseline 1.1 creatine increase to 2.4 today continue IVF avoid nephrotoxic agents Nephrology consulted monitor BMP Renal U/S showed: No evidence of hydronephrosis. Moderate bladder debris. Left-sided bladder diverticulum Dementia stable Hypothyroidism TSH WNL Continue levothyroxine DVT px on heparin subq Code Status DNR Consultants: Nephrology Current Inpatient Medications: Current Inpatient Medications Medications (Trade) Dose Ordered Sig/Heavenly Route Start Time Stop Time Status Last Admin Dose Admin Heparin Sodium (Porcine) (Heparin Sq 5000 Unit/0.5ml) 5,000 unit Q8 SQ 05/13/17 22:00 06/12/17 21:59 05/14/17 14:08 5,000 UNIT Cefepime HCl 1000 mg/Dextrose 111.3 ml @ 200 mls/hr Q12H IV 05/14/17 06:00 05/16/17 05:59 05/14/17 17:31 200 MLS/HR Buspirone HCl (Buspar Tab) 7.5 mg BID PO 05/13/17 21:00 06/12/17 20:59 05/14/17 08:12 7.5 MG Escitalopram Oxalate (Lexapro Tab) 20 mg QAM PO 05/14/17 09:00 06/13/17 08:59 05/14/17 08:12 20 MG Finasteride (Proscar Tab) 5 mg QAM PO 05/14/17 09:00 06/13/17 08:59 05/14/17 08:11 5 MG Levothyroxine Sodium (Synthroid Tab) 100 mcg DAILYBB PO 05/14/17 06:30 06/13/17 06:59 05/14/17 05:34 100 MCG Tamsulosin HCl (Flomax Cap) 0.4 mg HS PO 05/13/17 21:00 06/12/17 20:59 Artificial Tears (Artificial Tears) 1 drops BID OPB 05/13/17 21:00 06/12/17 20:59 05/14/17 08:12 1 DROPS Sodium Chloride 1,000 ml @ 100 mls/hr Q10H IV 05/14/17 07:30 06/13/17 07:29 05/14/17 17:29 100 MLS/HR
[2017-05-14] MEDS: TAMSULOSIN HCL 0.4 MG CAP PO SCH (20:33)
[2017-05-15] VITALS (14 sets, daily range): BP systolic 106–149; BP diastolic 57–81; PULSE 69–84; TEMP 36.2–37.1; O2SAT 93–100
[2017-05-15] MEDS: SODIUM CHLORIDE 0.9% 1000ML 1,000 ML IV SCH ×2 (03:25→18:37)
[2017-05-15] MEDS: HEPARIN SOD 5000 UNIT/0.5 ML CARP SQ SCH (05:42)
[2017-05-15] MEDS: CEFEPIME IV 1,000 MG in DEXTROSE 5% 100ML 100 ML IV SCH ×2 (05:42→18:37)
[2017-05-15] MEDS: LEVOTHYROXINE 100 MCG TAB PO SCH (05:42)
[2017-05-15 06:04] LABS: HEMATOCRIT 22.3 % (42-52); MEAN CELL VOLUME 96.5 fL (80-100); MEAN CORPUSCULAR HEMOGLOBIN 31.6 pg (25-34); MEAN CORPUSCULAR HGB CONC 32.7 g/dl (32-36); MEAN PLATELET VOLUME 8.4 fL (7.4-10.4); PLATELET COUNT 206 K/uL (130-400); RED BLOOD COUNT 2.31 M/uL (4.7-6.1); WHITE BLOOD COUNT 11.99 K/uL (4.8-10.8)
[2017-05-15 06:39] LABS: BUN/CREATININE RATIO 22.3 (10-20); CREATININE 1.7 mg/dl (0.60-1.40); POTASSIUM 4.1 mmol/L (3.5-5.1)
[2017-05-15] MEDS: ARTIFICIAL TEARS OP SOLN OPB SCH ×4 (08:47→20:44)
[2017-05-15] MEDS: FINASTERIDE 5 MG TAB PO SCH (08:47)
[2017-05-15] MEDS: ESCITALOPRAM OXALATE 20 MG TAB PO SCH (08:47)
--- NOTE | 2017-05-15 12:33 | Nephrology Progress Note ---
Nephrology Progress Note Date of Service: May 15, 2017. Subjective 86 yo male with barbara/atn in setting of hypoxia, and found to have uti and on antibiotics. pts hg levels are low and getting blood transfusion today. on iv fluids and tolerating them well. Objective Date Time Temp Pulse Resp B/P (MAP) Pulse Ox O2 Delivery O2 Flow Rate FiO2 05/15/17 12:15 36.8 76 18 110/81 94 05/15/17 11:44 36.9 76 18 130/57 94 05/15/17 11:15 36.9 76 22 106/64 94 05/15/17 11:00 36.8 75 24 111/57 94 05/15/17 10:47 36.7 82 22 127/66 05/15/17 07:02 36.6 69 18 113/57 (75) 93 Room Air 05/15/17 04:10 36.8 74 18 110/66 (81) 93 Room Air 05/15/17 04:00 Room Air 05/15/17 00:00 Room Air 05/14/17 23:18 36.6 70 20 123/80 (94) 100 Room Air 05/14/17 20:00 Room Air 05/14/17 19:53 37.0 68 20 106/64 (78) 94 Room Air 05/14/17 16:00 Room Air 05/14/17 15:28 36.8 76 19 121/70 (87) 93 Room Air Physical Exam: General-dementia Eyes-no scleral icterus ENT-mmm Neck-supple Lungs-decreased at bases, poor inspiratory effort Heart-rrr Abdomen-bs+ s/nt/nd Extremities-no c/c/e Neuro-dementia Current Inpatient Medications Medications (Trade) Dose Ordered Sig/Heavenly Route Start Time Stop Time Status Last Admin Dose Admin Heparin Sodium (Porcine) (Heparin Sq 5000 Unit/0.5ml) 5,000 unit Q8 SQ 05/13/17 22:00 06/12/17 21:59 05/15/17 05:42 5,000 UNIT Cefepime HCl 1000 mg/Dextrose 111.3 ml @ 200 mls/hr Q12H IV 05/14/17 06:00 05/16/17 05:59 05/15/17 05:42 200 MLS/HR Buspirone HCl (Buspar Tab) 7.5 mg BID PO 05/13/17 21:00 06/12/17 20:59 05/15/17 08:47 7.5 MG Escitalopram Oxalate (Lexapro Tab) 20 mg QAM PO 05/14/17 09:00 06/13/17 08:59 05/15/17 08:47 20 MG Finasteride (Proscar Tab) 5 mg QAM PO 05/14/17 09:00 06/13/17 08:59 05/15/17 08:47 5 MG Levothyroxine Sodium (Synthroid Tab) 100 mcg DAILYBB PO 05/14/17 06:30 06/13/17 06:59 05/15/17 05:42 100 MCG Tamsulosin HCl (Flomax Cap) 0.4 mg HS PO 05/13/17 21:00 06/12/17 20:59 05/14/17 20:33 0.4 MG Artificial Tears (Artificial Tears) 1 drops BID OPB 05/13/17 21:00 06/12/17 20:59 05/15/17 08:47 1 DROPS Sodium Chloride 1,000 ml @ 75 mls/hr [id number] IV 05/14/17 07:30 06/13/17 07:29 05/15/17 03:25 100 MLS/HR Last 24 Hours Test 05/14/17 14:10 05/14/17 22:34 05/15/17 05:54 Troponin I 0.245 ng/ml 0.214 ng/ml White Blood Count 11.99 K/uL Red Blood Count 2.31 M/uL Hemoglobin 7.3 g/dL Hematocrit 22.3 % Mean Corpuscular Volume 96.5 fL Mean Corpuscular Hemoglobin 31.6 pg Mean Corpuscular Hemoglobin Concent 32.7 g/dl RDW Standard Deviation 54.0 fL RDW Coefficient of Variation 15.4 % Platelet Count 206 K/uL Mean Platelet Volume 8.4 fL Sodium Level 142 mmol/L Potassium Level 4.1 mmol/L Chloride Level 114 mmol/L Carbon Dioxide Level 19 mmol/L Anion Gap 9.0 mmol/L Blood Urea Nitrogen 38 mg/dl Creatinine 1.70 mg/dl Est Creatinine Clear Calc Drug Dose 33.0 ml/min Estimated GFR () 40.8 Estimated GFR (Non- 35.2 BUN/Creatinine Ratio 22.3 Random Glucose 86 mg/dl Lactic Acid Level 0.8 mmol/L Calcium Level 8.0 mg/dl Procalcitonin 0.13 ng/ml Assessment & Plan barbara-atn in the setting of low blood pressures and uti. improving on antibiotics and iv fluids. currrently getting a blood transfusion. creatinine peaked at 2.4 and is 1.7 today. baseline in the low 1s. renal us with no hydro. continue current plan of care. pt clinically improving. follow volume status closely.
--- NOTE | 2017-05-15 13:19 | Progress Note ---
Medicine Progress Note Date & Time of Visit: May 15, 2017 at 12:56. Subjective Pt was seen and examined Lying in bed with no distress Pt is awake, looking around VS stable and saturated well on RA Called his HARISHA George for blood consent Objective Last 8 Hrs Date Time Temp Pulse Resp B/P (MAP) Pulse Ox O2 Delivery O2 Flow Rate FiO2 05/15/17 12:15 36.8 76 18 110/81 94 05/15/17 11:44 36.9 76 18 130/57 94 05/15/17 11:15 36.9 76 22 106/64 94 05/15/17 11:00 36.8 75 24 111/57 94 05/15/17 10:47 36.7 82 22 127/66 05/15/17 07:02 36.6 69 18 113/57 (75) 93 Room Air Physical Exam: General- No acute distress Head- atraumatic Eyes- PERRL, EOMI ENT- oropharynx clear Neck- supple, no JVD Lungs- Poor air entry due to unable to follow commands Heart- regular rhythm Abdomen- normal bowel sounds, soft Extremities- no pretibial edema Neuro- awake and alert, PERRL, move all extremities Skin- warm & dry Laboratory Results: Last 24 Hours Test 05/14/17 14:10 05/14/17 22:34 05/15/17 05:54 Troponin I 0.245 ng/ml 0.214 ng/ml White Blood Count 11.99 K/uL Red Blood Count 2.31 M/uL Hemoglobin 7.3 g/dL Hematocrit 22.3 % Mean Corpuscular Volume 96.5 fL Mean Corpuscular Hemoglobin 31.6 pg Mean Corpuscular Hemoglobin Concent 32.7 g/dl RDW Standard Deviation 54.0 fL RDW Coefficient of Variation 15.4 % Platelet Count 206 K/uL Mean Platelet Volume 8.4 fL Sodium Level 142 mmol/L Potassium Level 4.1 mmol/L Chloride Level 114 mmol/L Carbon Dioxide Level 19 mmol/L Anion Gap 9.0 mmol/L Blood Urea Nitrogen 38 mg/dl Creatinine 1.70 mg/dl Est Creatinine Clear Calc Drug Dose 33.0 ml/min Estimated GFR () 40.8 Estimated GFR (Non- 35.2 BUN/Creatinine Ratio 22.3 Random Glucose 86 mg/dl Lactic Acid Level 0.8 mmol/L Calcium Level 8.0 mg/dl Procalcitonin 0.13 ng/ml Assessment & Plan Sepsis Meet sepsis criteria on admission. Present with tachycardia, elevated WBC, elevated lactic acid on admission was hypotensive at [facility] BP responds with IVF Lactic acid trending down Saturated well on RA UA positive for UTI Blood cx pending and urine cx pending procalcitonin normal Continue Cefepime IV Decresased IVF to 70ml/hr Vital stable Hypoxia CXR showed Bibasilar opacities Continue cefepime saturated well on RA continue monitor Anemia Might be dilutional No signs of bleeding Hba1c 7.3 will transfuse 1 unit PRBC Consent obtained from HIPOLITO Vazquez with nurse present as witness monitor cbc hold heparin subq for now Elevated troponin Possible related to elevated creatine EKG showed no ischemic changes trop trending down Asymptomatic Continue monitor in telemetry Echo showed * The LV appears small and underfilled. * Septal motion is consistent with conduction abnormality. * No regional wall motion abnormalities. * The right ventricle is normal in size and function. * EF=> 70 Acute Kidney injury Possible related to dehydration creatine on admission was 1.7 creatine baseline 1.1 creatine decreased to 2.4 --> 1.7 continue IVF avoid nephrotoxic agents Will monitor closely for fluid overload Nephrology consulted monitor BMP Renal U/S showed: No evidence of hydronephrosis. Moderate bladder debris. Left-sided bladder diverticulum Dementia stable Hypothyroidism TSH WNL Continue levothyroxine DVT px hold heparin subq due to anemia Put on SCDs Code Status DNR Consultants: Nephrology Current Inpatient Medications: Current Inpatient Medications Medications (Trade) Dose Ordered Sig/Heavenly Route Start Time Stop Time Status Last Admin Dose Admin Heparin Sodium (Porcine) (Heparin Sq 5000 Unit/0.5ml) 5,000 unit Q8 SQ 05/13/17 22:00 06/12/17 21:59 05/15/17 05:42 5,000 UNIT Cefepime HCl 1000 mg/Dextrose 111.3 ml @ 200 mls/hr Q12H IV 05/14/17 06:00 05/16/17 05:59 05/15/17 05:42 200 MLS/HR Buspirone HCl (Buspar Tab) 7.5 mg BID PO 05/13/17 21:00 06/12/17 20:59 05/15/17 08:47 7.5 MG Escitalopram Oxalate (Lexapro Tab) 20 mg QAM PO 05/14/17 09:00 06/13/17 08:59 05/15/17 08:47 20 MG Finasteride (Proscar Tab) 5 mg QAM PO 05/14/17 09:00 06/13/17 08:59 05/15/17 08:47 5 MG Levothyroxine Sodium (Synthroid Tab) 100 mcg DAILYBB PO 05/14/17 06:30 06/13/17 06:59 05/15/17 05:42 100 MCG Tamsulosin HCl (Flomax Cap) 0.4 mg HS PO 05/13/17 21:00 06/12/17 20:59 05/14/17 20:33 0.4 MG Artificial Tears (Artificial Tears) 1 drops BID OPB 05/13/17 21:00 06/12/17 20:59 05/15/17 08:47 1 DROPS Sodium Chloride 1,000 ml @ 75 mls/hr [id number] IV 05/14/17 07:30 06/13/17 07:29 05/15/17 03:25 100 MLS/HR
[2017-05-15 20:15] LABS: HEMATOCRIT 24.3 % (42-52)
[2017-05-15] MEDS: TAMSULOSIN HCL 0.4 MG CAP PO SCH (20:45)
[2017-05-16] MEDS: SODIUM CHLORIDE 0.9% 1000ML 1,000 ML IV SCH ×2 (03:38→15:58)
[2017-05-16 03:59] VITALS: BP 138/75; PULSE 76; TEMP 36.6; O2SAT 94
[2017-05-16] MEDS: LEVOTHYROXINE 100 MCG TAB PO SCH (05:47)
[2017-05-16 07:21] VITALS: BP 122/66; PULSE 73; TEMP 36.5; O2SAT 97
[2017-05-16] MEDS: ARTIFICIAL TEARS OP SOLN OPB SCH ×2 (08:49)
[2017-05-16] MEDS: ESCITALOPRAM OXALATE 20 MG TAB PO SCH (08:49)
[2017-05-16] MEDS: FINASTERIDE 5 MG TAB PO SCH (08:49)
--- NOTE | 2017-05-16 10:27 | Nephrology Progress Note ---
Nephrology Progress Note Date of Service: May 16, 2017. Subjective 86 yo male with barbara/atn in setting of hypoxia, and found to have uti and on antibiotics. pt with underlying dementia with no specific complaints today. pt laying flat and not requiring any oxygen. Objective Date Time Temp Pulse Resp B/P (MAP) Pulse Ox O2 Delivery O2 Flow Rate FiO2 05/16/17 07:21 36.5 73 20 122/66 (84) 97 Room Air 05/16/17 03:59 36.6 76 20 138/75 (96) 94 Room Air 05/15/17 23:48 Room Air 05/15/17 19:56 Room Air 05/15/17 19:22 37.0 69 20 134/72 (92) 100 Room Air 05/15/17 16:00 95 Room Air 05/15/17 15:41 36.2 76 20 115/62 (79) 94 Room Air 05/15/17 13:45 36.9 84 22 109/57 94 05/15/17 13:11 37.1 76 18 149/74 94 05/15/17 12:15 36.8 76 18 110/81 94 05/15/17 12:00 94 Room Air 05/15/17 11:44 36.9 76 18 130/57 94 05/15/17 11:15 36.9 76 22 106/64 94 05/15/17 11:00 36.8 75 24 111/57 94 05/15/17 10:47 36.7 82 22 127/66 Physical Exam: General-dementia Eyes-no scleral icterus ENT-mmm Neck-supple Lungs-decreased at bases Heart-regular Abdomen-bs+ s/nt/nd Extremities-no c/c/e Neuro-dementia Current Inpatient Medications Medications (Trade) Dose Ordered Sig/Heavenly Route Start Time Stop Time Status Last Admin Dose Admin Heparin Sodium (Porcine) (Heparin Sq 5000 Unit/0.5ml) 5,000 unit Q8 SQ 05/13/17 22:00 06/12/17 21:59 Future Hold 05/15/17 05:42 5,000 UNIT Buspirone HCl (Buspar Tab) 7.5 mg BID PO 05/13/17 21:00 06/12/17 20:59 05/16/17 08:49 7.5 MG Escitalopram Oxalate (Lexapro Tab) 20 mg QAM PO 05/14/17 09:00 06/13/17 08:59 05/16/17 08:49 20 MG Finasteride (Proscar Tab) 5 mg QAM PO 05/14/17 09:00 06/13/17 08:59 05/16/17 08:49 5 MG Levothyroxine Sodium (Synthroid Tab) 100 mcg DAILYBB PO 05/14/17 06:30 06/13/17 06:59 05/16/17 05:47 100 MCG Tamsulosin HCl (Flomax Cap) 0.4 mg HS PO 05/13/17 21:00 06/12/17 20:59 05/15/17 20:45 0.4 MG Artificial Tears (Artificial Tears) 1 drops BID OPB 05/13/17 21:00 06/12/17 20:59 05/16/17 08:49 1 DROPS Sodium Chloride 1,000 ml @ 75 mls/hr [id number] IV 05/14/17 07:30 06/13/17 07:29 05/16/17 03:38 75 MLS/HR Last 24 Hours Test 05/15/17 20:04 05/16/17 04:44 05/16/17 10:08 Hemoglobin 8.0 g/dL Hematocrit 24.3 % Assessment & Plan barbara-atn in the setting of low blood pressures and uti. improving on antibiotics and iv fluids. had blood transfusion yesterday. on iv fluids and would continue them with plans of stopping them tomorrow depending on labs. creatinine peaked at 2.4 and improving. today's labs are pending.
[2017-05-16 10:36] LABS: HEMATOCRIT 24.5 % (42-52); MEAN CELL VOLUME 96.5 fL (80-100); MEAN CORPUSCULAR HEMOGLOBIN 32.7 pg (25-34); MEAN CORPUSCULAR HGB CONC 33.9 g/dl (32-36); PLATELET COUNT 229 K/uL (130-400); RED BLOOD COUNT 2.54 M/uL (4.7-6.1); WHITE BLOOD COUNT 10.38 K/uL (4.8-10.8)
[2017-05-16 10:49] LABS: BUN/CREATININE RATIO 22.7 (10-20); CALCIUM 8.4 mg/dl (8.5-10.1); CREATININE 1.2 mg/dl (0.60-1.40)
[2017-05-16 12:24] VITALS: BP 116/66; PULSE 79; TEMP 36.7; O2SAT 99
--- NOTE | 2017-05-16 12:57 | Progress Note ---
Medicine Progress Note Date & Time of Visit: May 16, 2017 at 12:50. Subjective Pt was seen and examined Lying in bed with no distress Pt is awake VS stable and saturated well on RA Objective Last 8 Hrs Date Time Temp Pulse Resp B/P (MAP) Pulse Ox O2 Delivery O2 Flow Rate FiO2 05/16/17 12:24 36.7 79 17 116/66 (83) 99 Room Air 05/16/17 07:21 36.5 73 20 122/66 (84) 97 Room Air Physical Exam: General- No acute distress Head- atraumatic Eyes- PERRL, EOMI ENT- oropharynx clear Neck- supple, no JVD Lungs- Poor air entry due to unable to follow commands Heart- regular rhythm Abdomen- normal bowel sounds, soft Extremities- no pretibial edema Neuro- awake and alert, PERRL, move all extremities Skin- warm & dry Laboratory Results: Last 24 Hours Test 05/15/17 20:04 05/16/17 10:08 Hemoglobin 8.0 g/dL 8.3 g/dL Hematocrit 24.3 % 24.5 % White Blood Count 10.38 K/uL Red Blood Count 2.54 M/uL Mean Corpuscular Volume 96.5 fL Mean Corpuscular Hemoglobin 32.7 pg Mean Corpuscular Hemoglobin Concent 33.9 g/dl RDW Standard Deviation 54.8 fL RDW Coefficient of Variation 15.8 % Platelet Count 229 K/uL Mean Platelet Volume 9.0 fL Sodium Level 142 mmol/L Potassium Level 4.0 mmol/L Chloride Level 113 mmol/L Carbon Dioxide Level 21 mmol/L Anion Gap 8.0 mmol/L Blood Urea Nitrogen 27 mg/dl Creatinine 1.20 mg/dl Est Creatinine Clear Calc Drug Dose 46.7 ml/min Estimated GFR () 62.2 Estimated GFR (Non- 53.7 BUN/Creatinine Ratio 22.7 Random Glucose 85 mg/dl Calcium Level 8.4 mg/dl Assessment & Plan Sepsis Meet sepsis criteria on admission. Present with tachycardia, elevated WBC, elevated lactic acid on admission was hypotensive at [facility] BP responds with IVF Lactic acid trending down Saturated well on RA UA positive for UTI Blood cx no growth Urine cx grew ecoli sensitive to Cefepime Will discharge on PO abx to complete 7 days course procalcitonin normal Will d/c IVF to 70ml/hr Vital stable resolved Hypoxia CXR showed Bibasilar opacities Continue cefepime saturated well on RA continue monitor Resolved Anemia Might be dilutional No signs of bleeding Hba1c 8.3 S/P transfusion of 1 unit PRBC Consent obtained from HIPOLITO Vazquez with nurse present as witness yesterday hold heparin subq for now Elevated troponin Possible related to elevated creatine EKG showed no ischemic changes trop trending down Asymptomatic Continue monitor in telemetry Echo showed * The LV appears small and underfilled. * Septal motion is consistent with conduction abnormality. * No regional wall motion abnormalities. * The right ventricle is normal in size and function. * EF=> 70 Acute Kidney injury Possible related to dehydration creatine on admission was 1.7 creatine baseline 1.1 creatine decreased to 2.4 --> 1.7-->1.2 Will d/c IVF today avoid nephrotoxic agents Continue monitor closely for fluid overload Nephrology consulted monitor BMP Renal U/S showed: No evidence of hydronephrosis. Moderate bladder debris. Left-sided bladder diverticulum Dementia stable Hypothyroidism TSH WNL Continue levothyroxine DVT px hold heparin subq due to anemia Put on SCDs Code Status DNR Disposition Will discharge to [facility] today Consultants: Nephrology Current Inpatient Medications: Current Inpatient Medications Medications (Trade) Dose Ordered Sig/Heavenly Route Start Time Stop Time Status Last Admin Dose Admin Heparin Sodium (Porcine) (Heparin Sq 5000 Unit/0.5ml) 5,000 unit Q8 SQ 05/13/17 22:00 06/12/17 21:59 Future Hold 05/15/17 05:42 5,000 UNIT Buspirone HCl (Buspar Tab) 7.5 mg BID PO 05/13/17 21:00 06/12/17 20:59 05/16/17 08:49 7.5 MG Escitalopram Oxalate (Lexapro Tab) 20 mg QAM PO 05/14/17 09:00 06/13/17 08:59 05/16/17 08:49 20 MG Finasteride (Proscar Tab) 5 mg QAM PO 05/14/17 09:00 06/13/17 08:59 05/16/17 08:49 5 MG Levothyroxine Sodium (Synthroid Tab) 100 mcg DAILYBB PO 05/14/17 06:30 06/13/17 06:59 05/16/17 05:47 100 MCG Tamsulosin HCl (Flomax Cap) 0.4 mg HS PO 05/13/17 21:00 06/12/17 20:59 05/15/17 20:45 0.4 MG Artificial Tears (Artificial Tears) 1 drops BID OPB 05/13/17 21:00 06/12/17 20:59 05/16/17 08:49 1 DROPS Sodium Chloride 1,000 ml @ 75 mls/hr [id number] IV 05/14/17 07:30 06/13/17 07:29 05/16/17 03:38 75 MLS/HR
--- NOTE | 2017-05-16 13:34 | Discharge Instructions ---
Discharge Instructions Date of Service May 16, 2017. Admission Reason for Admission: Hypotension, Hypoxia Discharge Discharge Diagnosis / Problem: Sepsis, UTI, Acute kidney injury, Anemia, Hypoxia Discharge Goals Goal(s): Decrease discomfort, Improve function, Improve disease control Activity Recommendations Activity Limitations: resume your previous activity (as tolerated) . Instructions / Follow-Up Instructions / Follow-Up Discharge to [facility] Follow up with your PCP at [facility] Complete the antibiotic course for keflex Check BMP and CBC within 1 week. Fall precaution Aspiration precaution Avoid nephrotoxic agent for now such as NSAIDs Current Hospital Diet Patient's current hospital diet: Regular Diet Discharge Diet Recommended Diet: Regular Diet Pending Studies Studies pending at discharge: no Medical Emergencies . Who to Call and When: Medical Emergencies: If at any time you feel your situation is an emergency, please call 911 immediately. . Non-Emergent Contact Non-Emergency issues call your: Primary Care Provider Call Non-Emergent contact if: you have a fever, you have any medication questions . . "Provider Documentation" section prepared by Martina Michelle. . VTE Core Measure Inpt VTE Proph given/why not?: Unfractionated heparin SQ, SCD's
[2017-05-16] MEDS ORDERED: CEPH-571 PO (13:38)
[2017-05-16 14:18] VITALS: O2SAT 99
[2017-05-16 14:23] VITALS: BP 116/66; PULSE 79; TEMP 36.7; O2SAT 99
[2017-05-16 15:31] VITALS: BP 112/63; PULSE 79; TEMP 36.8
--- NOTE | 2017-05-18 00:32 | Discharge Summary ---
Discharge Summary Date of Service May 18, 2017. Discharge Summary Admission Date: May 13, 2017 at 19:01 Discharge Date: May 16, 2017 Discharge Disposition: Rehab Principal Diagnosis: Sepsis Secondary Diagnoses/Problems: UTI Acute kidney injury Anemia Hypoxia Hypotension Dementia Elevated Troponin Procedures: [~ rep ct add3]] EXAMINATION: RENAL ULTRASOUND CLINICAL HISTORY: Acute renal insufficiency COMPARISON STUDY: FINDINGS: The right kidney measures 10.9 cm.. The left kidney measures 10.6 cm.. There is no evidence of hydronephrosis. 2 right renal cysts are visualized measuring 32 mm and 20 mm respectively. There is a moderate amount of dependent debris within the bladder. Correlate with urinalysis. There is an 18 mm left-sided bladder diverticulum. IMPRESSION : 1. No evidence of hydronephrosis 2. Moderate bladder debris 3. Left-sided bladder diverticulum 4. Right renal cysts Electronically signed by: Boaz Garland M.D. 05/14/2017 11:03 AM Dictated Date/Time: 05/14/2017 11:01 AM CHEST ONE VIEW PORTABLE CLINICAL HISTORY: Atypical chest pain COMPARISON STUDY: 08/01/2013 FINDINGS: The heart is the upper limits of normal in size. There is no evidence of failure. Surgical clips project in the left paramediastinal region. There are by basilar opacities. Atelectasis is favored over pneumonia. IMPRESSION: Bibasilar opacities, likely atelectatic although an inflammatory/infectious process could appear similar Electronically signed by: Boaz Garland M.D. 05/13/2017 5:53 PM Dictated Date/Time: 05/13/2017 5:51 PM Consultations: Nephrology Medication Reconciliation New Medications: Cephalexin (Keflex) 500 Mg Cap 1 CAP PO BID for 4 Days, #8 CAP Continued Medications: Acetaminophen (Tylenol) 325 Mg Tab 2 TAB PO BID, TAB 5741-9938 Buspirone Hcl (Buspirone Hcl) 5 Mg Tab 1.5 TAB PO BID, TAB [id number] Clotrimazole (Topical) (Lotrimin Af) 1 % Cre 1 APPLN TOP BID, GM 0446-9018 Escitalopram (Lexapro) 10 Mg Tab 20 MG PO QAM, TAB 0800 Eucerin (Eucerin) Cre 1 APPLN TOP BID 8335-7428 Finasteride (Proscar) 5 Mg Tab 5 MG PO QAM, TAB 0800 Levothyroxine Sodium (Levothyroxine Sodium) 100 Mcg Tab 1 TAB PO QAM, TAB 0800 Polyethylene Glycol-Propylene (Systane) 1 Laura Laura 1 DROPS OPB BID 9592-4766 Senna (Senokot) 8.6 Mg Tab 2 TAB PO BID, TAB [id number] Tamsulosin Hcl (Flomax) 0.4 Mg Cap 0.4 MG PO HS, CAP 2000 Discontinued Medications: Meloxicam (Mobic) 7.5 Mg Tab 7.5 MG PO QAM, TAB 0800 Admission Information HPI (per Admitting provider): 86 yo Male with PMH of Dementia, BPH, Hypothyroidism, HTN was sent from [facility] for hypotension/hypoxia. History limited due to patient dementia. Hx obtained from the ER chart/ER physician and Nursing staff/chart. As per Nursing staff pt was lethargy. His oxygen saturation was checked and was found to be in the 80's. he was placed on 2L NC and his saturation was 99. Nursing staff was unable to get his BP. As per staff, they were only getting 1 number (manually or BP machine and did not know if it was systolic and diastolic). As per snf staff pt did not have any diarrhea, fever, chills, vomiting, diarrhea, cough or urinary symptoms. They called EMS and sent him to the Hospital for further eval. Received IVF and cefepime in the ER. Pt lying in bed B12 in the ER with no distress, BP 120/67 and saturated at 100%. denies any chest pain. Physical Exam (per Admitting): General Appearance: WD/WN, no apparent distress Head: normocephalic, atraumatic Eyes: EOMI ENT: + pertinent finding (decrease hearing function) Neck: supple, no JVD Respiratory/Chest: lungs clear, no respiratory distress, no accessory muscle use Cardiovascular: regular rate, rhythm, no edema Abdomen/GI: normal bowel sounds Back: no CVA tenderness Extremities/Musculoskelatal: no pedal edema Neurologic/Psych: alert, + pertinent finding (dementia, move all extremities ) Skin: warm/dry, no rash Hospital Course Sepsis Meet sepsis criteria on admission. Present with tachycardia, elevated WBC, elevated lactic acid on admission was hypotensive at [facility] BP responds with IVF Lactic acid trending down Saturated well on RA UA positive for UTI Blood cx no growth Urine cx grew ecoli sensitive to Cefepime Will discharge on PO abx to complete 7 days course procalcitonin normal Will d/c IVF to 70ml/hr Vital stable resolved Hypoxia CXR showed Bibasilar opacities Continue cefepime saturated well on RA continue monitor Resolved Anemia Might be dilutional No signs of bleeding Hba1c 8.3 S/P transfusion of 1 unit PRBC Consent obtained from HIPOLITO Vazquez with nurse present as witness yesterday hold heparin subq for now Elevated troponin Possible related to elevated creatine EKG showed no ischemic changes trop trending down Asymptomatic Continue monitor in telemetry Echo showed * The LV appears small and underfilled. * Septal motion is consistent with conduction abnormality. * No regional wall motion abnormalities. * The right ventricle is normal in size and function. * EF=> 70 Acute Kidney injury Possible related to dehydration creatine on admission was 1.7 creatine baseline 1.1 creatine decreased to 2.4 --> 1.7-->1.2 Will d/c IVF today avoid nephrotoxic agents Continue monitor closely for fluid overload Nephrology consulted monitor BMP Renal U/S showed: No evidence of hydronephrosis. Moderate bladder debris. Left-sided bladder diverticulum Dementia stable Hypothyroidism TSH WNL Continue levothyroxine DVT px hold heparin subq due to anemia Put on SCDs Code Status DNR Disposition Will discharge to [facility] today Total time spent on discharge = 35 minutes This includes examination of the patient, discharge planning, medication reconciliation, and communication with other providers. Discharge Instructions Discharge Instructions Date of Service May 16, 2017. Admission Reason for Admission: Hypotension, Hypoxia Discharge Discharge Diagnosis / Problem: Sepsis, UTI, Acute kidney injury, Anemia, Hypoxia Discharge Goals Goal(s): Decrease discomfort, Improve function, Improve disease control Activity Recommendations Activity Limitations: resume your previous activity (as tolerated) . Instructions / Follow-Up Instructions / Follow-Up Discharge to [facility] Follow up with your PCP at [facility] Complete the antibiotic course for keflex Check BMP and CBC within 1 week. Fall precaution Aspiration precaution Avoid nephrotoxic agent for now such as NSAIDs Current Hospital Diet Patient's current hospital diet: Regular Diet Discharge Diet Recommended Diet: Regular Diet Pending Studies Studies pending at discharge: no Medical Emergencies . Who to Call and When: Medical Emergencies: If at any time you feel your situation is an emergency, please call 911 immediately. . Non-Emergent Contact Non-Emergency issues call your: Primary Care Provider Call Non-Emergent contact if: you have a fever, you have any medication questions . . "Provider Documentation" section prepared by Martina Michelle. . VTE Core Measure Inpt VTE Proph given/why not?: Unfractionated heparin SQ, SCD's Additional Copies To Anne Penn D.O. [facility]
== END 2017-05-16 18:30 | DRG 871 ==
LOC: EDBD 16:02 → C.ED 16:03 → C.MED 19:01 → ENRESERV 19:32
PROVIDERS: ADMIT Internal Medicine; ATTEND Internal Medicine
DX: A41.9 Sepsis, unspecified organism (principal); N17.0 Acute kidney failure with tubular necrosis; N39.0 Urinary tract infection, site not specified; R09.02 Hypoxemia; E86.0 Dehydration; E03.9 Hypothyroidism, unspecified; N40.0 Benign prostatic hyperplasia without lower urinary tract symptoms; I10 Essential (primary) hypertension; F01.50 Vascular dementia, unspecified severity, without behavioral disturbance, psychotic disturbance, mood disturbance, and anxiety; D64.9 Anemia, unspecified; Z66 Do not resuscitate; Z79.899 Other long term (current) drug therapy

== ENCOUNTER → 2017-10-11 | Outpatient (CLI) | payer BC, OTHER ==
[~2017-10-11] MED LIST changes: +ACET-1311 PO; +BUSP5TAB59 PO; -CLB200 PO; +CLOT-40 TOP; -DUTA0.5C PO; +ESCI10TA17 PO; +FINA5TAB4 PO; -LEVO100T35 PO; +LEVO100T7 PO; -OXYB5TAB74 PO; +SENN-61 PO; +SKINCRE34 TOP; +TAMS0.4C38 PO; -TAMS0.4C59 PO
== END ==
LOC: C.LABCC 07:35
PROVIDERS: ATTEND Internal Medicine
DX: E03.9 Hypothyroidism, unspecified (principal)

== ENCOUNTER → 2017-11-11 | Outpatient (CLI) | payer BC ==
[~2017-11-11] MED LIST changes: -CLOT-40 TOP; +CLOT-51 TOP
[2017-11-11 09:55] LABS: BLOOD UREA NITROGEN 20 mg/dl (7-18); CALCIUM 8.9 mg/dl (8.5-10.1); CARBON DIOXIDE 24 mmol/L (21-32); CREATININE 0.81 mg/dl (0.60-1.40); GLUCOSE 91 mg/dl (70-99); POTASSIUM 4.1 mmol/L (3.5-5.1); SODIUM 140 mmol/L (136-145)
== END ==
LOC: C.LABCC 07:51
PROVIDERS: ATTEND Internal Medicine
DX: N18.9 Chronic kidney disease, unspecified (principal)

== ENCOUNTER → 2018-02-03 | Outpatient (CLI) | payer BC ==
[2018-02-03 17:49] LABS: INFLUENZA B ANTIGEN Neg for Influ B (NEG)
== END ==
LOC: C.LABSPEC 16:41 → C.LABCC 16:44
PROVIDERS: ATTEND Internal Medicine
DX: Z11.59 Encounter for screening for other viral diseases (principal)

== ENCOUNTER → 2018-02-04 | Outpatient (CLI) | payer BC ==
[2018-02-04 10:04] LABS: BASO % 0.1 %; BASO ABS # 0.01 K/uL (0-0.2); EOS % 1.2 %; EOS ABS # 0.11 K/uL (0-0.5); HEMATOCRIT 33.2 % (42-52); HEMOGLOBIN 10.9 g/dL (14.0-18.0); IG# 0.02 K/uL (0.00-0.02); LYMPH % 15.3 %; LYMPH ABS # 1.39 K/uL (1.2-3.4); MEAN CELL VOLUME 95.7 fL (80-100); MEAN CORPUSCULAR HEMOGLOBIN 31.4 pg (25-34); MEAN CORPUSCULAR HGB CONC 32.8 g/dl (32-36); MEAN PLATELET VOLUME 9.1 fL (7.4-10.4); MONO % 10.4 %; MONO ABS # 0.94 K/uL (0.11-0.59); NEUT % 72.8 %; NEUT ABS # 6.61 K/uL (1.4-6.5); PLATELET COUNT 210 K/uL (130-400); RED CELL DISTRIBUTION WIDTH CV 15.8 % (11.5-14.5); WHITE BLOOD COUNT 9.08 K/uL (4.8-10.8)
[2018-02-04 10:10] LABS: BLOOD UREA NITROGEN 24 mg/dl (7-18); CALCIUM 8.5 mg/dl (8.5-10.1); CARBON DIOXIDE 24 mmol/L (21-32); CREATININE 0.95 mg/dl (0.60-1.40); GLUCOSE 88 mg/dl (70-99); SODIUM 137 mmol/L (136-145)
== END ==
LOC: C.LABCC 10:03
PROVIDERS: ATTEND Internal Medicine
DX: R05 Cough (principal); R50.9 Fever, unspecified